=== PATIENT | female | born 1980 | race American Indian/Alaskan Native ===

== ENCOUNTER 2021-08-05 14:53 | Emergency (ER) | payer OTHER ==
[2021-08-05 17:31] VITALS: BP 188/122
[2021-08-05] MEDS ORDERED: KETOROLAC 30 MG/1 ML INJ IM ONE (18:45)
[2021-08-05] MEDS ORDERED: dexAMETHasone 20 MG/5 ML VIAL IM ONE (18:46)
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
== END 2021-08-05 19:42 | disposition home or self-care (01) ==
LOC: EDBD → ED 14:53
DX: M54.50 Low back pain, unspecified (principal)
CPT/HCPCS: 96372; 99282; J1100; J1885